=== PATIENT | male | born 1960 | race Caucasian/White ===

== ENCOUNTER → 2017-02-07 | Outpatient (CLI) | payer OTHER ==
[~2017-02-07] MED LIST: COL-RITE250 MG PO; MEN'S ONE DAIL1 EACH PO; NAPROSYN500 MG PO; NORCO 7.5-3251 EACH PO; PERCOCET 5-3251 EACH PO; STOOL SOFTENER250 MG PO; ZOFRAN4 MG PO
[2017-02-07 08:44] LABS: BUN/CREATININE RATIO 24 (0-10)
== END ==
LOC: OPSV2 07:25
PROVIDERS: Orthopaedic Surgery
DX: Z01.810 Encounter for preprocedural cardiovascular examination (principal); Z01.812 Encounter for preprocedural laboratory examination; M75.101 Unspecified rotator cuff tear or rupture of right shoulder, not specified as traumatic
CPT/HCPCS: 71020; 80048; 93005